=== PATIENT | female | born 1990 | race Caucasian/White ===

== ENCOUNTER → 2016-07-02 | Outpatient (REF) | payer OTHER ==
[2016-07-03 11:54] LABS: VITAMIN B12 LEVEL 932 PG/ML (247-911)
[2016-07-03 11:56] LABS: MEAN CORPUSCULAR HEMOGLOBIN 28.5 pg (27.0-33.0); MEAN CORPUSCULAR HGB CONC 32.6 g/dl (32.0-36.5); MEAN CORPUSCULAR VOLUME 87.4 fl (80.0-96.0); RED CELL DISTRIBUTION WIDTH 12.9 % (11.5-14.5); WHITE BLOOD COUNT 9.1 K/mm3 (4.0-10.0)
[2016-07-03 12:14] LABS: ANION GAP 5 MEQ/L (8-16); BLOOD UREA NITROGEN 9 MG/DL (7-18); CALCIUM LEVEL 9.1 MG/DL (8.5-10.1); CARBON DIOXIDE LEVEL 31 MEQ/L (21-32); CHLORIDE LEVEL 108 MEQ/L (98-107); CREATININE FOR GFR 0.85 MG/DL (0.55-1.02); FERRITIN 28 NG/ML (8-252); FREE T4 0.89 NG/DL (0.76-1.46); GLOMERULAR FILTRATION RATE > 60.0 (>60); GLUCOSE, FASTING 92 MG/DL (70-105); SODIUM LEVEL 144 MEQ/L (136-145)
== END ==
LOC: M SFHCCLAY 14:32
PROVIDERS: ATTEND Family Medicine
DX: R53.83 Other fatigue (principal)

== ENCOUNTER 2016-11-03 10:42 | Emergency (ER) | payer OTHER ==
[~2016-11-03] VITALS: Ht 165.1 cm; Wt 55.3 kg
[2016-11-03] MEDS ORDERED: MICR1TAB11 PO (11:15)
[2016-11-03] MEDS ORDERED: SERT50TA PO (11:15)
[2016-11-03] MEDS ORDERED: ONDANSETRON 4MG/2ML VIAL (J2405) IV ONE (12:00)
[2016-11-03] MEDS ORDERED: NS 1,000 ML IV ONE (12:00)
[2016-11-03] MEDS ORDERED: MORPHINE 4 MG/ML 1ML SYRINGE IV PRN (12:00)
[2016-11-03 12:33] LABS: BASO % 0.2 % (0.0-1.0); EOS # 0.1 K/mm3 (0.0-0.50); EOS % 1.4 % (0.0-3.0); LARGE UNSTAINED CELL # 0.1 K/mm3 (0.0-0.4); LARGE UNSTAINED CELL % 1.4 % (0.0-4.0); LYMPH # 2.2 K/mm3 (1.5-6.5); LYMPH % 25.4 % (24.0-44.0); MEAN CORPUSCULAR HEMOGLOBIN 29.1 pg (27.0-33.0); MEAN CORPUSCULAR VOLUME 88.4 fl (80.0-96.0); MONO # 0.3 K/mm3 (0.0-0.8); MONO % 4.1 % (0.0-5.0); NEUTROPHILS # 5.5 K/mm3 (1.8-7.7); NEUTROPHILS % 67.4 % (36.0-66.0); PLATELET COUNT, AUTOMATED 222 k/mm3 (150-450); RED CELL DISTRIBUTION WIDTH 12.4 % (11.5-14.5); WHITE BLOOD COUNT 8.2 K/mm3 (4.0-10.0)
[2016-11-03 12:51] LABS: ALBUMIN 3.7 GM/DL (3.2-5.2); ALBUMIN/GLOBULIN RATIO 1.23 (1.00-1.93); ALKALINE PHOSPHATASE 52 U/L (45-117); ALT/SGPT 12 U/L (12-78); ANION GAP 5 MEQ/L (8-16); AST/SGOT 14 U/L (15-37); BILIRUBIN,DIRECT < 0.1 MG/DL (0.0-0.2); BILIRUBIN,TOTAL 0.2 MG/DL (0.2-1.0); BLOOD UREA NITROGEN 9 MG/DL (7-18); CALCIUM LEVEL 8.7 MG/DL (8.5-10.1); CARBON DIOXIDE LEVEL 26 MEQ/L (21-32); CHLORIDE LEVEL 111 MEQ/L (98-107); CREATININE FOR GFR 0.69 MG/DL (0.55-1.02); GLOMERULAR FILTRATION RATE > 60.0 (>60); GLUCOSE, FASTING 89 MG/DL (70-105); POTASSIUM SERUM 3.9 MEQ/L (3.5-5.1); SODIUM LEVEL 142 MEQ/L (136-145); TOTAL PROTEIN 6.7 GM/DL (6.4-8.2)
[2016-11-03] MEDS ORDERED: ISOVUE-370 76% 100ML VIAL (Q9967) As Ordered ONE (13:16)
--- NOTE | 2016-11-03 13:47 | REP ---
Clinical: Right lower quadrant pain. Technique: Axial contrast enhanced images from the lung bases to the pubic symphysis using 100 ml Isovue 370 intravenous contrast material with coronal and sagittal re-formations. Findings: Lung bases are clear. Visualized heart and pericardium normal. Liver, spleen, pancreas, gallbladder, bilateral adrenal glands and kidneys are normal. The enteric system is without obstruction or acute inflammatory process and a normal terminal ileum and appendix are identified in the right lower quadrant. There is no evidence for acute appendicitis. Pelvis demonstrates normal bladder and uterus/left adnexa. Right ovarian cyst measures 4.2 cm in diameter and a small amount of pelvic free fluid is appreciated. Vasculature is normal. No ascites. No adenopathy. No free air. Surrounding musculoskeletal structures are intact. Impression: 1. Normal appendix and enteric system. 2. Right lower quadrant pain likely related to a 4.2 cm right ovarian cyst and small amount of pelvic free fluid. Signed by Rivera Holm MD 11/03/2016 01:39 P
--- NOTE | 2016-11-03 14:24 | REP ---
Clinical: Pelvic pain. Ovarian cyst. Technique: Transabdominal pelvic ultrasound with color Doppler evaluation of the ovaries. Findings: Bladder is unremarkable and measures 10.2 x 8.1 x 9.4 cm. Normal anteverted uterus measures 10.1 x 4.3 x 6.6 cm. Endometrial complex measures 6.4 mm thickness. No discrete uterine or endometrial abnormalities appreciated. The bilateral ovaries are normal in vascularity without torsion. Left ovary measures 4.2 x 1.9 x 2.4 cm; RI=0.54. Right ovary measures 5.0 x 3.4 x 4.4 cm; RI=0.68, and includes 3.8 x 4.1 x 2.8 cm cyst. No pelvic fluid or adnexal mass lesion. Impression: 1. 4.1 cm simple right ovarian cyst likely related to patient's symptoms. Bilateral ovaries are otherwise normal and without torsion. 2. Uterus is unremarkable and there is no free fluid or adnexal mass lesion. Signed by Rivera Holm MD 11/03/2016 02:16 P
[2016-11-03] MEDS ORDERED: NORC1TAB4 PO (14:35)
[2016-11-03] MEDS ORDERED: IBUP600T26 PO (14:35)
[2016-11-03 14:42] VITALS: BP 112/67
== END 2016-11-03 14:47 | disposition home or self-care (01) ==
LOC: M ED 11:35
DX: N83.291 Other ovarian cyst, right side (principal); Z88.1 Allergy status to other antibiotic agents; Z91.040 Latex allergy status; F17.210 Nicotine dependence, cigarettes, uncomplicated

== ENCOUNTER 2018-05-07 14:24 | Emergency (ER) | payer OTHER ==
[2018-05-07] MEDS: FIORICET TAB PO (15:33)
[2018-05-07] MEDS: ONDANSETRON 4 MG ORAL DISINTEGRATING TAB (Q0162 PER 1MG) PO (15:33)
[2018-05-07 15:55] LABS: APPEARANCE, URINE HAZY (CLEAR); BACTERIA, URINE AUTO NEGATIVE (NEGATIVE); BILIRUBIN, URINE AUTO NEGATIVE (NEGATIVE); BLOOD, URINE BLOOD NEGATIVE (NEGATIVE); COLOR, URINE YELLOW (YELLOW); GLUCOSE, URINE (UA) AUTO NEGATIVE (NEGATIVE); KETONE, URINE AUTO TRACE mg/dL (NEGATIVE); LEUKOCYTE ESTERASE, URINE AUTO NEGATIVE (NEGATIVE); MUCUS, URINE SMALL (NEGATIVE); NITRITE, URINE AUTO NEGATIVE (NEGATIVE); PROTEIN, URINE AUTO NEGATIVE (NEGATIVE); RBC, URINE AUTO 1 /HPF (0-3); SPECIFIC GRAVITY URINE AUTO 1.025 (1.002-1.035); SQUAMOUS EPITHELIAL CELL UR AU 3 /HPF (0-6); UROBILINOGEN, URINE AUTO 0.2 mg/dL (0.0-2.0); WBC, URINE AUTO 1 /HPF (0-3)
[2018-05-07] MEDS: METOCLOPRAMIDE INJ 10MG/2ML VIAL (J2765) IV (16:28)
[2018-05-07] MEDS: NS 1,000 ML IV (16:28)
[2018-05-07] MEDS: diphenhydrAMINE INJ 50MG/ML VIAL (J1200) IV (16:30)
== END 2018-05-07 17:37 | disposition home or self-care (01) ==
LOC: M ED 14:24
DX: O99.352 Diseases of the nervous system complicating pregnancy, second trimester (principal); G43.909 Migraine, unspecified, not intractable, without status migrainosus; Z3A.21 21 weeks gestation of pregnancy
CPT/HCPCS: J1200

== ENCOUNTER → 2020-09-02 | Outpatient (CLI) | payer OTHER ==
[~2020-09-02] MED LIST: IBUP-1022 PO; LARI1TAB5; MICR1TAB11 PO; NORC1TAB7 PO; PRENTAB45 PO; SERT-141 PO; ZANTTAB9 PO
== END ==
LOC: M LABSMTC 09:58
PROVIDERS: ATTEND Anesthesiology
DX: Z01.818 Encounter for other preprocedural examination (principal); Z20.822 Contact with and (suspected) exposure to COVID-19

== ENCOUNTER 2020-09-07 07:48 | Day surgery (SDC) | payer OTHER ==
[~2020-09-07] VITALS: Ht 165.1 cm; Wt 63.5 kg
[~2020-09-07 07:48] MED LIST changes: +LIDOCAINE 2% 100MG/5ML SDV (FOR ANES.) As Ordered ONE; +NS 1,000 ML IV ONE; +fentaNYL 100 MCG/2 ML INJECTION (J3010) As Ordered ONE; +propofoL 200 MG/20 ML VIAL As Ordered ONE
[2020-09-07] MEDS ORDERED: OMEP40CA97 PO (08:08)
--- NOTE | 2020-09-07 08:50 | ROOR ---
Patient Name: Celeste Walker Procedure Date: 09/07/2020 8:31 AM Date of : 1990 Age: 30 Room: [facility] Gender: Female Note Status: Finalized Procedure: Upper Endoscopy + Biopsies Indications: Heartburn, Exclusion of Boss's esophagus Providers: Nahid Irby MD Referring MD: Bertrand Castellanos Requesting Provider: Medicines: Monitored Anesthesia Care Complications: No immediate complications. Procedure: Pre-Anesthesia Assessment: - The heart rate, respiratory rate, oxygen saturations, blood pressure, adequacy of pulmonary ventilation, and response to care were monitored throughout the procedure. The Endoscope was introduced through the mouth, and advanced to the second part of duodenum. The upper GI endoscopy was accomplished without difficulty. The patient tolerated the procedure well. Findings: The Z-line was regular and was found 40 cm from the incisors. Multiple biopsies were obtained with cold forceps for evaluation to rule out Boss's Esophagus randomly at the gastroesophageal junction. No other significant abnormalities were identified in a careful examination of the stomach. Biopsies were taken with a cold forceps in the gastric antrum for Helicobacter pylori testing. The exam of the duodenum was otherwise normal. Impression: - Z-line regular, 40 cm from the incisors. - Multiple biopsies were obtained at the gastroesophageal junction. - Biopsies were taken with a cold forceps for Helicobacter pylori testing. - The examination was otherwise normal. Recommendation: - Patient has a contact number available for emergencies. The signs and symptoms of potential delayed complications were discussed with the patient. Return to normal activities tomorrow. Written discharge instructions were provided to the patient. - High fiber diet. - Discharge patient to home. - Follow an antireflux regimen. - Continue present medications. - Await pathology results. - Telephone GI clinic for pathology results in 1 week. - Return to referring physician. - The findings and recommendations were discussed with the patient. Procedure Code(s): --- Professional --- 00795, Esophagogastroduodenoscopy, flexible, transoral; with biopsy, single or multiple Diagnosis Code(s): --- Professional --- R12, Heartburn CPT copyright 2019 [employer]. All rights reserved. The codes documented in this report are preliminary and upon speech and language specialist review may be revised to meet current compliance requirements. Nahid Irby MD Nahid Irby MD 09/07/2020 8:50:13 AM Electronically signed by Nahid Irby MD Number of Addenda: 0 Note Initiated On: 09/07/2020 8:31 AM Estimated Blood Loss: Estimated blood loss: none.
[2020-09-07 09:10] VITALS: BP 127/76
== END 2020-09-07 09:14 | disposition home or self-care (01) ==
LOC: M OPP 07:48
PROVIDERS: ATTEND Internal Medicine Gastroenterology
DX: K31.89 Other diseases of stomach and duodenum (principal); K21.9 Gastro-esophageal reflux disease without esophagitis; K58.9 Irritable bowel syndrome, unspecified; F17.210 Nicotine dependence, cigarettes, uncomplicated; Z88.1 Allergy status to other antibiotic agents; Z91.040 Latex allergy status
CPT/HCPCS: 43239; 88305; J3010

== ENCOUNTER → 2020-09-19 | Outpatient (CLI) | payer OTHER ==
[~2020-09-19] MED LIST changes: -LIDOCAINE 2% 100MG/5ML SDV (FOR ANES.) As Ordered ONE; -NS 1,000 ML IV ONE; +OMEP40CA97 PO; -fentaNYL 100 MCG/2 ML INJECTION (J3010) As Ordered ONE; -propofoL 200 MG/20 ML VIAL As Ordered ONE
--- NOTE | 2020-09-19 08:00 | REP ---
INDICATION: GERD COMPARISON: None. TECHNIQUE: Real time trivedi scale ultrasound examination using curved array transducer. FINDINGS: Liver is normal in contour, size, and echogenicity without focal hepatic lesions identified. Pancreas is incompletely evaluated due to interposed bowel gas. The gallbladder is normal and without gallstones, wall thickening, or pericholecystic fluid. No biliary ductal dilatation is appreciated and the common bile duct measures 3.0 mm diameter. Right kidney is normal in reniform shape without hydronephrosis and measures 10.4 x 4.8 x 4.7 cm. No ascites in the visualized right upper quadrant. IMPRESSION: Normal limited right upper quadrant ultrasound <Electronically signed by Rivera Holm > 09/19/20 [id number]
== END ==
LOC: M RAD 07:00
PROVIDERS: ATTEND Internal Medicine Gastroenterology
DX: K21.9 Gastro-esophageal reflux disease without esophagitis (principal); R10.10 Upper abdominal pain, unspecified